=== PATIENT | male | born 1995 | race Caucasian/White ===

== ENCOUNTER 2017-01-17 12:16 | Emergency (ER) | payer BC ==
[2017-01-17 13:44] LABS: HEMOGLOBIN 15.1 gm/dl (14.0-17.5); RED BLOOD COUNT 5.14 M/UL (4.20-5.50); WHITE BLOOD COUNT 7.2 K/UL (4.5-11.0)
[2017-01-17 14:06] LABS: BUN/CREATININE RATIO 12 (0-10)
== END 2017-01-17 15:40 | disposition home or self-care (01) ==
LOC: ER1 12:16
PROVIDERS: Physician Assistant
DX: R07.89 Other chest pain (principal); F17.290 Nicotine dependence, other tobacco product, uncomplicated
CPT/HCPCS: 36415; 71020; 80053; 82550; 82553; 83874; 84484; 85025; 85379; 93005; 96374; 99285; J1885

== ENCOUNTER 2022-04-07 01:30 | Emergency (ER) | payer SELFPAY ==
[~2022-04-07 01:30] MED LIST: FLEXERIL 10 MG10 MG PO; IBUPROFEN800 MG PO
== END 2022-04-07 10:24 | disposition home or self-care (01) ==
LOC: ER1
DX: S01.01XA Laceration without foreign body of scalp, initial encounter (principal); W22.8XXA Striking against or struck by other objects, initial encounter; Y92.89 Other specified places as the place of occurrence of the external cause; Y99.0 Civilian activity done for income or pay
CPT/HCPCS: 12002; 90715; 99282

== ENCOUNTER 2022-04-17 18:19 | Emergency (ER) | payer SELFPAY | END 2022-04-17 18:52 | disposition home or self-care (01) | LOC: ER1 18:19 | DX: S01.01XD Laceration without foreign body of scalp, subsequent encounter (principal); W22.8XXD Striking against or struck by other objects, subsequent encounter | CPT/HCPCS: 99281 ==